=== PATIENT | female | born 1955 | race Hispanic/Latino ===

== ENCOUNTER 2022-12-14 02:41 | Emergency (ER) | payer BC, MEDICARE ==
[~2022-12-14] VITALS: Ht 157.5 cm; Wt 95.3 kg
[2022-12-14 02:55] LABS: BASOPHILS % 0.6 % (0.0-1.0); EOSINOPHILS # (AUTO) 0.1 (0.0-0.4); EOSINOPHILS % 1.5 % (0.0-6.0); HEMATOCRIT 39.6 % (34.2-44.1); HEMOGLOBIN 13.1 g/dL (12.0-16.0); LYMPHOCYTES # (AUTO) 1.6 (1.0-3.2); LYMPHOCYTES % 24.6 % (18.0-39.1); MEAN CORPUSCULAR HEMOGLOBIN 29.3 pg (28-32); MEAN CORPUSCULAR HGB CONC 33.1 g/dL (31-35); MEAN CORPUSCULAR VOLUME 88.6 fL (81-99); MONOCYTES # (AUTO) 0.5 (0.2-0.8); MONOCYTES % 7.9 % (4.4-11.3); NEUTROPHILS # (AUTO) 4.3 (2.1-6.9); NEUTROPHILS % 64.9 % (38.7-80.0); PLATELET COUNT 163 x10e3/uL (140-360); RED BLOOD COUNT 4.47 x10e6/uL (3.6-5.1); RED CELL DISTRIBUTION WIDTH 14.6 % (11.7-14.4)
[2022-12-14] MEDS ORDERED: NITROGLYCERIN 2% OINT 1 GM PKT TOP ONE (03:00)
[2022-12-14] MEDS ORDERED: ASPIRIN 81 MG CHEW TAB PO ONE (03:00)
[2022-12-14] MEDS ORDERED: ASPIRIN 81 MG CHEW TAB ONE (03:04)
[2022-12-14] MEDS ORDERED: NITROGLYCERIN 2% OINT 1 GM PKT ONE (03:06)
[2022-12-14 03:14] LABS: ALBUMIN 3.9 g/dL (3.5-5.0); ALBUMIN/GLOBULIN RATIO 1.1 (0.8-2.0); ANION GAP 13.7 mmol/L (8-16); CALCIUM 8.9 mg/dL (8.4-10.2); CREATININE, SERUM 0.81 mg/dL (0.57-1.11); POTASSIUM 3.7 mmol/L (3.5-5.1)
[2022-12-14 03:20] LABS: CREATINE KINASE MB 1.9 ng/mL (0-5.0)
[2022-12-14 06:04] VITALS: BP 127/80
== END 2022-12-14 06:35 | disposition other institution (70) ==
LOC: ER 02:48 → MERGE 02:48 → ER 06:35
DX: R07.9 Chest pain, unspecified (principal); R00.8 Other abnormalities of heart beat; R94.31 Abnormal electrocardiogram [ECG] [EKG]; Z20.822 Contact with and (suspected) exposure to COVID-19
CPT/HCPCS: 36415; 71045; 80053; 82550; 82553; 83880; 84484; 85025; 93005; 99284; U0002

== ENCOUNTER 2022-12-16 20:15 | Observation (INO) | payer BC, MEDICARE ==
[~2022-12-16] VITALS: Ht 157.5 cm; Wt 95.3 kg
[2022-12-16] MEDS ORDERED: ONDANSETRON HCL INJ 2MG/ML 2ML 2 MG/ML VIAL IV STA (20:27)
[2022-12-16] MEDS ORDERED: SODIUM CHLORIDE FLUSH 10 ML SYR IV PRN (20:30)
[2022-12-16 20:35] LABS: BASOPHILS # (AUTO) 0.1 (0.0-0.1); BASOPHILS % 0.9 % (0.0-1.0); EOSINOPHILS # (AUTO) 0.1 (0.0-0.4); EOSINOPHILS % 1.3 % (0.0-6.0); HEMATOCRIT 44.5 % (34.2-44.1); HEMOGLOBIN 14.3 g/dL (12.0-16.0); LYMPHOCYTES # (AUTO) 1.6 (1.0-3.2); LYMPHOCYTES % 23.6 % (18.0-39.1); MEAN CORPUSCULAR HEMOGLOBIN 28.8 pg (28-32); MEAN CORPUSCULAR HGB CONC 32.1 g/dL (31-35); MEAN CORPUSCULAR VOLUME 89.5 fL (81-99); MONOCYTES # (AUTO) 0.6 (0.2-0.8); MONOCYTES % 8.9 % (4.4-11.3); NEUTROPHILS # (AUTO) 4.5 (2.1-6.9); NEUTROPHILS % 64.7 % (38.7-80.0); PLATELET COUNT 182 x10e3/uL (140-360); RED BLOOD COUNT 4.97 x10e6/uL (3.6-5.1); RED CELL DISTRIBUTION WIDTH 14.7 % (11.7-14.4)
[2022-12-16 20:54] LABS: ALBUMIN 3.9 g/dL (3.5-5.0); ANION GAP 18.2 mmol/L (8-16); CALCIUM 9.5 mg/dL (8.4-10.2); CREATININE, SERUM 1.16 mg/dL (0.57-1.11); POTASSIUM 4.2 mmol/L (3.5-5.1)
[2022-12-17] VITALS (7 sets, daily range): BP systolic 105–138; BP diastolic 61–77
[2022-12-17] MEDS ORDERED: ONDANSETRON HCL INJ 2MG/ML 2ML 2 MG/ML VIAL IV PRN (00:45)
[2022-12-17] MEDS ORDERED: SODIUM CHLORIDE FLUSH 10 ML SYR INJ PRN (00:45)
[2022-12-17] MEDS: ENOXAPARIN INJ 80 MG/0.8 ML SYR SC SCH ×3 (00:50→21:17)
[2022-12-17] MEDS ORDERED: IOPAMIDOL 370 MG/ML 100 ML INFUS..BTL INJ ONE (06:55)
[2022-12-17] MEDS ORDERED: METOPROLOL SUCC25 MG PO (11:04)
[2022-12-17] MEDS ORDERED: LOSARTAN POTAS100 MG PO (11:04)
[2022-12-17] MEDS ORDERED: ASPIRIN81 MG PO (11:04)
[2022-12-17] MEDS ORDERED: LIPITOR20 MG PO (11:04)
[2022-12-17] MEDS ORDERED: PENTOXIFYLLINE400 MG PO (11:04)
[2022-12-17] MEDS ORDERED: ISOSORBIDE MONO30 MG PO (11:04)
[2022-12-17] MEDS ORDERED: ATORVASTATIN 40 MG TAB PO SCH (21:00)
[2022-12-18] VITALS: BP 122/59
[2022-12-18 04:00] VITALS: BP 127/60
[2022-12-18 05:37] LABS: BASOPHILS # (AUTO) 0.1 (0.0-0.1); EOSINOPHILS # (AUTO) 0.2 (0.0-0.4); EOSINOPHILS % 3.5 % (0.0-6.0); HEMATOCRIT 39.8 % (34.2-44.1); HEMOGLOBIN 12.6 g/dL (12.0-16.0); LYMPHOCYTES # (AUTO) 1.2 (1.0-3.2); LYMPHOCYTES % 25.9 % (18.0-39.1); MEAN CORPUSCULAR HEMOGLOBIN 28.4 pg (28-32); MEAN CORPUSCULAR HGB CONC 31.7 g/dL (31-35); MEAN CORPUSCULAR VOLUME 89.6 fL (81-99); MONOCYTES # (AUTO) 0.5 (0.2-0.8); MONOCYTES % 9.4 % (4.4-11.3); NEUTROPHILS # (AUTO) 2.9 (2.1-6.9); NEUTROPHILS % 59.6 % (38.7-80.0); PLATELET COUNT 164 x10e3/uL (140-360); RED BLOOD COUNT 4.44 x10e6/uL (3.6-5.1); RED CELL DISTRIBUTION WIDTH 14.3 % (11.7-14.4)
[2022-12-18 06:10] LABS: ALBUMIN 3.3 g/dL (3.5-5.0); ANION GAP 12.3 mmol/L (8-16); CALCIUM 8.9 mg/dL (8.4-10.2); CREATININE, SERUM 0.72 mg/dL (0.57-1.11); POTASSIUM 4.3 mmol/L (3.5-5.1)
[2022-12-18 08:09] VITALS: BP 133/62
[2022-12-18 08:59] VITALS: BP 133/62
[2022-12-18] MEDS ORDERED: ASPIRIN 81 MG CHEW TAB PO SCH (09:00)
[2022-12-18] MEDS ORDERED: ISOSORBIDE MONONITRATE 30 MG TAB CR PO SCH (09:00)
[2022-12-18] MEDS ORDERED: LOSARTAN POTASSIUM 100 MG TAB PO SCH (09:00)
[2022-12-18] MEDS: ENOXAPARIN INJ 80 MG/0.8 ML SYR SC SCH (09:28)
[2022-12-18] MEDS ORDERED: APIXABAN 5 MG TABLET PO SCH (12:00)
[2022-12-18] MEDS ORDERED: ACETAMINOPHEN 325 MG TAB PO PRN (13:15)
[2022-12-18 13:17] VITALS: BP 112/71
== END 2022-12-18 18:26 | disposition home or self-care (01) ==
LOC: ER 20:20 → ERHOLD 12-17 00:40 → INTOOBSV 12-17 00:40 → MED/SURG3 12-17 08:35
PROVIDERS: ADMIT Internal Medicine; ATTEND Internal Medicine
DX: I26.93 Single subsegmental thrombotic pulmonary embolism without acute cor pulmonale (principal); I10 Essential (primary) hypertension; E78.5 Hyperlipidemia, unspecified; Z20.822 Contact with and (suspected) exposure to COVID-19; I87.2 Venous insufficiency (chronic) (peripheral)
CPT/HCPCS: 36415 ×2; 71260; 80053 ×2; 82948; 83880; 84484; 85025 ×2; 93005; 93970; 94760; 99284; G0378 ×2; J1650 ×2; J2405; Q9967; U0002